=== PATIENT | male | born 2000 | race Caucasian/White ===

== ENCOUNTER 2020-05-22 15:43 | Observation (INO) ==
[2020-05-22] MEDS ORDERED: 0.9 % Sodium Chloride 1,000 ML IVC ONE ×2 (16:07→17:06)
[2020-05-22 16:21] LABS: Basophils # 0.1 K/mcL (0.0-0.2); Basophils % 0.4 %; Eosinophils % 0.3 %; Hematocrit 48.3 % (37.5-50.1); Hemoglobin 17.2 g/dL (12.9-16.9); Immature Granulocytes % 0.2 % (0-4); Lymphocytes # 1.8 K/mcL (0.6-4.6); Mean Corpuscular HGB Conc 35.6 g/dL (31.6-35.5); Mean Corpuscular Hemoglobin 30.2 pg (28.0-33.3); Mean Corpuscular Volume 84.9 fL (83.0-100.0); Mean Platelet Volume 11.4 fL (9.4-12.4); Monocytes # 1.2 K/mcL (0.0-1.3); Monocytes % 10.7 %; Neutrophils # 8.2 K/mcL (1.6-8.9); Platelet Count 332 K/mcL (140-400); Red Blood Count 5.69 M/mcL (4.19-5.50); Red Cell Distribution Width 12.1 % (11.5-14.5); Segmented Neutrophils % 72.4 %; White Blood Count 11.4 K/mcL (4.3-11.1)
[2020-05-22] MEDS ORDERED: Isovue-370 500 ML BOTTLE IVP ONE ×2 (16:25→16:48)
[2020-05-22] MEDS ORDERED: Ondansetron 4 MG/2 ML VIAL IVP ONE (16:26)
[2020-05-22 16:48] LABS: Alanine Aminotransferase 15 Units/L (7-52); Albumin 5.7 g/dL (3.5-5.7); Alkaline Phosphatase 73 Units/L (34-104); Aspartate Amino Transferase 22 Units/L (13-39); BUN/Creatinine Ratio 18 (6-26); Bilirubin,Total 1.7 mg/dL (0.3-1.0); Blood Urea Nitrogen 51 mg/dL (6-20); Calcium 11.2 mg/dL (8.6-10.3); Carbon Dioxide 40 mEq/L (23-29); Chloride 74 mEq/L (98-107); Globulin 2.9 g/dL (2.4-3.5); Glucose 112 mg/dL (70-105); Magnesium 2.5 mg/dL (1.6-2.6); Osmolality,Calculated 288 (280-300); Phosphorous 3.8 mg/dL (2.7-4.5); Potassium 2.2 mEq/L (3.5-5.1); Sodium 132 mEq/L (136-145); Total Protein 8.6 g/dL (6.4-8.9); Troponin I < 0.03 ng/mL (< 0.04); eGFR For African Americans 35 (> 60); eGFR For Non-African Americans 29 (> 60)
[2020-05-22] MEDS ORDERED: Potassium Chloride Elixir 20 MEQ/15 ML UDC PO ONE (16:48)
[2020-05-22 17:00] LABS: Lipase 16 Units/L (11-82)
[2020-05-22 17:45] LABS: Bacteria,Urine Few per hpf (None-Few); Bilirubin,Urine Negative (Negative); Blood,Urine Negative (Negative); Clarity,Urine Clear (Clear); Color,Urine Yellow (Yellow); Glucose,Urine (UA) Normal (Normal); Hyaline Casts,Urine Many per lpf (None Seen); Ketones,Urine 60 mg/dL (Negative); Leukocyte Esterase,Urine Negative (Negative); Mucus,Urine Few per lpf (None-Few); Nitrite,Urine Negative (Negative); PH,Urine 6.5 pH Units (5.0-8.0); Protein,Urine 70 mg/dL (Neg-Trace); Specific Gravity,Urine 1.024 (1.010-1.025); Squamous Epithelial Cell,Urine Few per hpf (None-Few); WBC,Urine 0-3 per hpf (0-3)
[2020-05-22] MEDS ORDERED: Naloxone 0.4 MG/ML INJ IVP PRN (17:51)
[2020-05-22 18:18] LABS: Amphetamine Screen,Urine Negative ng/mL (Cutoff=1000); Barbiturate Screen,Urine Negative ng/mL (Cutoff=200); Benzodiazepines Screen,Urine Negative ng/mL (Cutoff=200); Cannabinoid Screen,Urine Positive ng/mL (Cutoff = 50); Cocaine Screen,Urine Negative ng/mL (Cutoff= 300); Opiate Screen,Urine Negative ng/mL (Cutoff=300); Phencyclidine Screen,Urine Negative ng/mL (Cutoff=25)
[2020-05-22] MEDS ORDERED: Metoclopramide 10 MG/2 ML VIAL IVP ONE (18:47)
[2020-05-22] MEDS: Ringers Solution, Lactated 1,000 ML IVC SCH (19:06)
[2020-05-22] MEDS: Acetaminophen 325 MG TABLET PO PRN (22:08)
[2020-05-22] MEDS ORDERED: Potassium Chloride 20 MEQ, Lidocaine 1% 2 ML in 0.9 % Sodium Chloride 250 ML IVPB ONE (23:07)
[2020-05-23] MEDS: Nicotine 21 MG PATCH.TD24 TD SCH ×2 (00:42→23:14)
[2020-05-23] MEDS: Ringers Solution, Lactated 1,000 ML IVC SCH ×4 (03:30→20:14)
[2020-05-23] MEDS: Ondansetron 4 MG/2 ML VIAL IVP PRN ×2 (03:42→20:14)
[2020-05-23 06:57] LABS: Basophils # 0.1 K/mcL (0.0-0.2); Basophils % 1.3 %; Eosinophils # 0.3 K/mcL (0.0-0.6); Eosinophils % 3.8 %; Hematocrit 36.7 % (37.5-50.1); Immature Granulocytes % 0.1 % (0-4); Lymphocytes # 2.2 K/mcL (0.6-4.6); Lymphocytes % 31.5 %; Mean Corpuscular HGB Conc 34.3 g/dL (31.6-35.5); Mean Corpuscular Hemoglobin 30.3 pg (28.0-33.3); Mean Corpuscular Volume 88.2 fL (83.0-100.0); Mean Platelet Volume 11.1 fL (9.4-12.4); Monocytes # 0.8 K/mcL (0.0-1.3); Monocytes % 11.9 %; Neutrophils # 3.5 K/mcL (1.6-8.9); Platelet Count 207 K/mcL (140-400); Red Blood Count 4.16 M/mcL (4.19-5.50); Red Cell Distribution Width 12.4 % (11.5-14.5); Segmented Neutrophils % 51.4 %; White Blood Count 6.9 K/mcL (4.3-11.1)
[2020-05-23 06:59] LABS: Hemoglobin 12.6 g/dL (12.9-16.9)
[2020-05-23 07:15] LABS: Bilirubin,Total 1.3 mg/dL (0.3-1.0); Calcium 9.6 mg/dL (8.6-10.3); Magnesium 2.1 mg/dL (1.6-2.6); Phosphorous 2.7 mg/dL (2.7-4.5); Potassium 2.7 mEq/L (3.5-5.1)
[2020-05-23] MEDS: Acetaminophen 325 MG TABLET PO PRN (08:09)
[2020-05-23] MEDS: Pantoprazole 40 MG VIAL IVP SCH (08:14)
[2020-05-23] MEDS ORDERED: Ringers Solution, Lactated 1,000 ML IVC ONE (09:07)
[2020-05-23] MEDS ORDERED: polyethylene glycoL 3350 17 GM POWD.PACK PO SCH (12:00)
[2020-05-23] MEDS ORDERED: hydrOXYzine pamoate 25 MG CAPSULE PO PRN (14:34)
[2020-05-23] MEDS ORDERED: Metoclopramide 10 MG/2 ML VIAL IVP SCH (16:30)
[2020-05-23] MEDS: polyethylene glycoL 3350 17 GM POWD.PACK PO SCH (20:13)
[2020-05-24 03:34] LABS: Basophils # 0.1 K/mcL (0.0-0.2); Basophils % 1.3 %; Eosinophils # 0.4 K/mcL (0.0-0.6); Eosinophils % 5.7 %; Hematocrit 33.6 % (37.5-50.1); Hemoglobin 11.3 g/dL (12.9-16.9); Immature Granulocytes % 0.2 % (0-4); Lymphocytes # 2.1 K/mcL (0.6-4.6); Lymphocytes % 34.8 %; Mean Corpuscular HGB Conc 33.6 g/dL (31.6-35.5); Mean Corpuscular Hemoglobin 29.9 pg (28.0-33.3); Mean Corpuscular Volume 88.9 fL (83.0-100.0); Mean Platelet Volume 11.7 fL (9.4-12.4); Monocytes # 0.6 K/mcL (0.0-1.3); Monocytes % 10.3 %; Neutrophils # 2.9 K/mcL (1.6-8.9); Platelet Count 178 K/mcL (140-400); Red Blood Count 3.78 M/mcL (4.19-5.50); Red Cell Distribution Width 12.3 % (11.5-14.5); Segmented Neutrophils % 47.7 %; White Blood Count 6.1 K/mcL (4.3-11.1)
[2020-05-24 03:51] LABS: Alanine Aminotransferase 15 Units/L (7-52); Albumin 3.8 g/dL (3.5-5.7); Albumin/Globulin Ratio 2.2 (1.1-2.2); Alkaline Phosphatase 44 Units/L (34-104); Aspartate Amino Transferase 21 Units/L (13-39); BUN/Creatinine Ratio 16 (6-26); Bilirubin,Total 0.9 mg/dL (0.3-1.0); Blood Urea Nitrogen 22 mg/dL (6-20); Calcium 9.2 mg/dL (8.6-10.3); Carbon Dioxide 34 mEq/L (23-29); Chloride 100 mEq/L (98-107); Globulin 1.7 g/dL (2.4-3.5); Glucose 97 mg/dL (70-105); Osmolality,Calculated 289 (280-300); Sodium 138 mEq/L (136-145); Total Protein 5.5 g/dL (6.4-8.9); eGFR For African Americans > 60 (> 60); eGFR For Non-African Americans > 60 (> 60)
[2020-05-24] MEDS: Ringers Solution, Lactated 1,000 ML IVC SCH (04:02)
[2020-05-24] MEDS ORDERED: Ringers Solution, Lactated 1,000 ML IVC ONE (08:14)
[2020-05-24] MEDS: Pantoprazole 40 MG VIAL IVP SCH (09:17)
[2020-05-24] MEDS: polyethylene glycoL 3350 17 GM POWD.PACK PO SCH (09:17)
[2020-05-24] MEDS: Ondansetron 4 MG/2 ML VIAL IVP PRN (09:22)
[2020-05-24 11:54] VITALS: BP 139/65
[2020-05-24] MEDS ORDERED: polyethylene glycoL 3350 17 GM POWD.PACK PO PRN (12:24)
[2020-05-24 13:26] LABS: BUN/Creatinine Ratio 14 (6-26); Blood Urea Nitrogen 17 mg/dL (6-20); Calcium 9.4 mg/dL (8.6-10.3); Carbon Dioxide 32 mEq/L (23-29); Chloride 103 mEq/L (98-107); Glucose 102 mg/dL (70-105); Osmolality,Calculated 290 (280-300); Potassium 3.7 mEq/L (3.5-5.1); Sodium 139 mEq/L (136-145); eGFR For African Americans > 60 (> 60); eGFR For Non-African Americans > 60 (> 60)
[2020-05-24] MEDS ORDERED: FLU Vac QV 20-21 (6Month+)/PF 0.5 ML SYRINGE IM ONE (13:57)
== END 2020-05-24 14:11 | disposition home or self-care (01) ==
LOC: EMEROOARM 15:43 → 2ANU 15:43 → SUATTDRO 17:55 → 2ANU 18:37
PROVIDERS: ADMIT Internal Medicine; ATTEND Internal Medicine

== ENCOUNTER 2021-03-19 16:50 | Observation (INO) ==
[2021-03-19] MEDS ORDERED: Ondansetron 4 MG/2 ML VIAL IVP ONE (17:07)
[2021-03-19] MEDS: 0.9 % Sodium Chloride 1,000 ML IVC SCH ×2 (17:27→18:42)
[2021-03-19 17:50] LABS: Basophils # 0.1 K/mcL (0.0-0.2); Basophils % 0.5 %; Eosinophils # 0.1 K/mcL (0.0-0.6); Eosinophils % 0.3 %; Hematocrit 41.8 % (37.5-50.1); Hemoglobin 15.1 g/dL (12.9-16.9); Immature Granulocytes % 0.5 % (0-4); Lymphocytes # 0.8 K/mcL (0.6-4.6); Lymphocytes % 5.2 %; Mean Corpuscular HGB Conc 36.1 g/dL (31.6-35.5); Mean Corpuscular Hemoglobin 30.9 pg (28.0-33.3); Mean Corpuscular Volume 85.7 fL (83.0-100.0); Mean Platelet Volume 10.9 fL (9.4-12.4); Monocytes # 0.9 K/mcL (0.0-1.3); Monocytes % 5.9 %; Neutrophils # 12.9 K/mcL (1.6-8.9); Platelet Count 243 K/mcL (140-400); Red Blood Count 4.88 M/mcL (4.19-5.50); Red Cell Distribution Width 11.3 % (11.5-14.5); Segmented Neutrophils % 87.6 %; White Blood Count 14.8 K/mcL (4.3-11.1)
[2021-03-19 18:06] LABS: Troponin I < 0.03 ng/mL (< 0.04)
[2021-03-19 18:27] LABS: Influenza A PCR Negative (Negative); Influenza B PCR Negative (Negative); Resp. Syncytial Virus PCR Negative (Negative); SARS-CoV-2 by PCR (In House) Negative (Negative)
[2021-03-19 18:35] LABS: Alanine Aminotransferase 13 Units/L (7-52); Albumin 4.7 g/dL (3.5-5.7); Albumin/Globulin Ratio 1.4 (1.1-2.2); Alkaline Phosphatase 61 Units/L (34-104); Aspartate Amino Transferase 25 Units/L (13-39); BUN/Creatinine Ratio 17 (6-26); Bilirubin,Direct 0.3 mg/dL (0.0-0.2); Bilirubin,Indirect 0.8 mg/dL (0.0-1.0); Bilirubin,Total 1.1 mg/dL (0.3-1.0); Blood Urea Nitrogen 33 mg/dL (6-20); Calcium 10.6 mg/dL (8.6-10.3); Carbon Dioxide > 45 mEq/L (23-29); Chloride 69 mEq/L (98-107); Globulin 3.3 g/dL (2.4-3.5); Glucose 121 mg/dL (70-105); Lipase 14 Units/L (11-82); Osmolality,Calculated 273 (280-300); Sodium 127 mEq/L (136-145); eGFR For African Americans 52 (> 60); eGFR For Non-African Americans 43 (> 60)
[2021-03-19] MEDS ORDERED: Potassium Chloride 40 MEQ, Lidocaine 1% 2 ML in 0.9 % Sodium Chloride 500 ML IVPB ONE (18:36)
[2021-03-19] MEDS ORDERED: 0.9 % Sodium Chloride 1,000 ML IVC ONE (18:52)
[2021-03-19 19:09] LABS: Bilirubin,Urine Negative (Negative); Blood,Urine Moderate (Negative); Clarity,Urine Clear (Clear); Color,Urine Yellow (Yellow); Glucose,Urine (UA) Normal (Normal); Ketones,Urine Negative (Negative); Leukocyte Esterase,Urine Negative (Negative); Mucus,Urine Few per lpf (None-Few); Nitrite,Urine Negative (Negative); PH,Urine 6.5 pH Units (5.0-8.0); Protein,Urine 100 mg/dL (Neg-Trace); Specific Gravity,Urine 1.028 (1.010-1.025); Squamous Epithelial Cell,Urine Few per hpf (None-Few)
[2021-03-19] MEDS ORDERED: Potassium Effervescent 25 MEQ TABLET.EFF PO ONE (20:10)
[2021-03-19] MEDS ORDERED: Ondansetron 4 MG/2 ML VIAL IVP PRN (23:10)
[2021-03-19] MEDS ORDERED: Acetaminophen 325 MG TABLET PO PRN (23:10)
[2021-03-19] MEDS ORDERED: Naloxone 0.4 MG/ML INJ IVP PRN (23:10)
[2021-03-19] MEDS ORDERED: Melatonin 3 MG TABLET PO PRN (23:10)
[2021-03-20] MEDS: Nicotine 21 MG PATCH.TD24 TD SCH ×2 (00:59→11:14)
[2021-03-20 01:44] LABS: BUN/Creatinine Ratio 15 (6-26); Blood Urea Nitrogen 26 mg/dL (6-20); Calcium 8.5 mg/dL (8.6-10.3); Carbon Dioxide 31 mEq/L (23-29); Chloride 88 mEq/L (98-107); Glucose 85 mg/dL (70-105); Osmolality,Calculated 276 (280-300); Potassium 2.8 mEq/L (3.5-5.1); Sodium 131 mEq/L (136-145); eGFR For African Americans > 60 (> 60); eGFR For Non-African Americans 50 (> 60)
[2021-03-20] MEDS ORDERED: 0.9 % Sodium Chloride 1,000 ML IVC ONE (02:49)
[2021-03-20] MEDS ORDERED: Potassium Chloride 40 MEQ, Lidocaine 1% 2 ML in 0.9 % Sodium Chloride 500 ML IVPB ONE (03:00)
[2021-03-20 06:44] LABS: Hematocrit 30.8 % (37.5-50.1); Hemoglobin 11.1 g/dL (12.9-16.9); Mean Corpuscular Hemoglobin 31.7 pg (28.0-33.3); Mean Platelet Volume 11.4 fL (9.4-12.4); Platelet Count 182 K/mcL (140-400); Red Cell Distribution Width 11.4 % (11.5-14.5); White Blood Count 9.6 K/mcL (4.3-11.1)
[2021-03-20 07:13] LABS: Alanine Aminotransferase 9 Units/L (7-52); Albumin 3.5 g/dL (3.5-5.7); Albumin/Globulin Ratio 1.8 (1.1-2.2); Alkaline Phosphatase 42 Units/L (34-104); Aspartate Amino Transferase 19 Units/L (13-39); BUN/Creatinine Ratio 15 (6-26); Bilirubin,Total 0.4 mg/dL (0.3-1.0); Blood Urea Nitrogen 24 mg/dL (6-20); Calcium 8.4 mg/dL (8.6-10.3); Carbon Dioxide 36 mEq/L (23-29); Chloride 89 mEq/L (98-107); Glucose 116 mg/dL (70-105); Osmolality,Calculated 277 (280-300); Phosphorous < 1.0 mg/dL (2.7-4.5); Potassium 2.6 mEq/L (3.5-5.1); Sodium 131 mEq/L (136-145); Total Protein 5.5 g/dL (6.4-8.9); eGFR For African Americans > 60 (> 60); eGFR For Non-African Americans 55 (> 60)
[2021-03-20] MEDS ORDERED: Potassium Phosphate 44 MEQ in 0.9 % Sodium Chloride 250 ML IVPB ONE (08:02)
[2021-03-20] MEDS ORDERED: Potassium Chloride Elixir 20 MEQ/15 ML UDC PO ONE (11:31)
[2021-03-20 15:59] VITALS: BP 127/70; PULSE 95; TEMP 99.2; O2SAT 99
== END 2021-03-20 16:42 | disposition home or self-care (01) ==
LOC: EMEROOARM 16:50 → 3NENU 16:50 → SUATTDRO 20:17 → 3NENU 20:50
PROVIDERS: ADMIT Internal Medicine; ATTEND Internal Medicine